=== PATIENT | male | born 1970 | race African-American/Black ===

== ENCOUNTER 2024-12-24 02:10 | Inpatient (IN) | payer MEDICAID ==
[~2024-12-24] VITALS: Ht 172.7 cm; Wt 88.0 kg
[2024-12-24 02:40] LABS: BASOPHILS % 1.1 % (0.0-2.0); DIFFERENTIAL COMMENT 0; EOSINOPHILS % 2.6 % (0.0-5.0); HEMATOCRIT. 47.8 % (42.0-52.0); LYMPHOCYTES % 29.1 % (20.0-50.0); MEAN CORPUSCULAR HEMOGLOBIN 33.6 pg (28.0-32.0); MEAN CORPUSCULAR HGB CONC 33.4 g/dL (31.0-37.0); MEAN CORPUSCULAR VOLUME 100.7 fL (80.0-94.0); MEAN PLATELET VOLUME 8.2 fl (7.4-10.4); MONOCYTES % 7.8 % (2.0-8.0); NEUTROPHILS % 59.4 % (40.0-76.0); PLATELET 276 x1000/uL (130-400); RED BLOOD CELL COUNT 4.75 mill/uL (4.7-6.1); RED CELL DISTRIBUTION WIDTH 14.2 % (11.6-14.6); WHITE BLOOD COUNT 8.4 x1000/uL (4.5-11.0)
[2024-12-24 02:44] LABS: CHLORIDE 101 mEq/L (98-107); POTASSIUM 3.4 mEq/L (3.5-5.1); SODIUM 143 mEq/L (136-145)
[2024-12-24 02:45] LABS: CARBON DIOXIDE 29 mEq/L (21-32)
[2024-12-24 02:50] LABS: CREATININE 1.6 mg/dL (0.6-1.3); GLUCOSE 103 mg/dL (70-105); UREA NITROGEN BLOOD 21 mg/dL (9-23)
[2024-12-24 02:51] LABS: AMMONIA < 17 uMol/L (<32); ETHANOL BLOOD 84 mg/dL (<10); TROPONIN I HIGH SENSITIVITY 9 ng/L (3.0-53)
[2024-12-24 02:52] LABS: ACETAMINOPHEN < 2 ug/mL (10-30)
[2024-12-24 03:03] LABS: CREATINE KINASE 2717 IU/L (46-171)
[2024-12-24] MEDS: SODIUM CHLORIDE 0.9% 1,000 ML IV ONE ×2 (04:46→04:59)
[2024-12-24 06:34] VITALS: BP 142/74; PULSE 85; RESP 18; TEMP 36.7
[2024-12-24 08:00] VITALS: BP 141/90; PULSE 63; RESP 20; TEMP 36.5; O2SAT 99
[2024-12-24] MEDS ORDERED: LORAZEPAM 2MG/ML INJ IV PRN (08:45)
[2024-12-24] MEDS ORDERED: MELATONIN 3MG TABLET PO PRN (09:30)
[2024-12-24] MEDS ORDERED: DOCUSATE SODIUM 100MG CAPSULE PO PRN (09:30)
[2024-12-24] MEDS ORDERED: MAGNESIUM/ALUMINUM HYDROXIDE/SIMETHICONE 30ML UDC PO PRN (09:30)
[2024-12-24] MEDS ORDERED: IPRATROPIUM/ALBUTEROL 0.5-3(2.5)MG/3ML NEB HHN PRN (09:30)
[2024-12-24] MEDS ORDERED: ONDANSETRON HCL 4MG/2ML INJ IV PRN (09:30)
[2024-12-24] MEDS ORDERED: GUAIFENESIN 200MG/10ML SUGAR FREE UDC PO PRN (09:30)
[2024-12-24] MEDS ORDERED: ACETAMINOPHEN 325MG TABLET PO PRN (09:30)
[2024-12-24] MEDS: POTASSIUM CHLORIDE 20MEQ/PACKET PO NR (10:15)
[2024-12-24] MEDS: THIAMINE HCL 100MG TABLET PO SCH (10:21)
[2024-12-24] MEDS: SODIUM CHLORIDE 0.45% 1,000 ML IV SCH (10:21)
[2024-12-24] MEDS: ENOXAPARIN 40MG/0.4ML SYR SUBCUT SCH (10:46)
[2024-12-24 12:00] VITALS: BP 147/91; PULSE 74; RESP 20; TEMP 36.7
[2024-12-24 16:00] VITALS: BP 156/86; PULSE 64; RESP 20; TEMP 36.5; O2SAT 100
[2024-12-24 17:14] LABS: *AMPHETAMINES SCREEN URINE PRESUMPTIVE POSITIVE (NEGATIVE); *BENZODIAZEPINES SCREEN URINE NEGATIVE (NEGATIVE)
[2024-12-24 17:15] LABS: *BARBITURATES SCREEN URINE NEGATIVE (NEGATIVE); *COCAINE SCREEN URINE NEGATIVE (NEGATIVE); CANNABINOID URINE SCREEN NEGATIVE (NEGATIVE); ECSTASY MDMA SCREEN URINE NEGATIVE (NEGATIVE); METHADONE URINE SCREEN NEGATIVE (NEGATIVE); OPIATES URINE SCREEN NEGATIVE (NEGATIVE); PHENCYCLIDINE URINE SCREEN PRESUMTIVE POSITIVE (NEGATIVE)
[2024-12-24 17:24] LABS: CLARITY URINE CLEAR (CLEAR); COLOR URINE YELLOW (YELLOW); GLUCOSE URINE NEGATIVE (NEGATIVE); KETONES URINE NEGATIVE (NEGATIVE); LEUKOCYTE ESTERASE URINE NEGATIVE (NEGATIVE); NITRITE URINE NEGATIVE (NEGATIVE); OCCULT BLOOD URINE NEGATIVE (NEGATIVE); PROTEIN URINE NEGATIVE (NEGATIVE); SPECIFIC GRAVITY URINE 1.022 (1.005-1.030)
[2024-12-24] MEDS: LACTATED RINGERS 1,000 ML IV SCH (17:33)
[2024-12-24 20:00] VITALS: BP 160/94; PULSE 63; RESP 16; TEMP 36.3; O2SAT 97
[2024-12-25] VITALS: BP 138/76; PULSE 60; RESP 16; TEMP 36.3; O2SAT 97
[2024-12-25 04:00] VITALS: BP 136/83; PULSE 79; RESP 16; TEMP 36.2; O2SAT 95
[2024-12-25 06:10] LABS: BASOPHILS % 0.4 % (0.0-2.0); DIFFERENTIAL COMMENT 0; EOSINOPHILS % 4.4 % (0.0-5.0); HEMATOCRIT. 44.4 % (42.0-52.0); HEMOGLOBIN. 14.7 g/dL (14.0-18.0); LYMPHOCYTES % 31.9 % (20.0-50.0); MEAN CORPUSCULAR HEMOGLOBIN 33.5 pg (28.0-32.0); MEAN CORPUSCULAR HGB CONC 33.1 g/dL (31.0-37.0); MEAN PLATELET VOLUME 9.1 fl (7.4-10.4); MONOCYTES % 8.2 % (2.0-8.0); NEUTROPHILS % 55.1 % (40.0-76.0); PLATELET 246 x1000/uL (130-400); WHITE BLOOD COUNT 7.1 x1000/uL (4.5-11.0)
[2024-12-25 06:32] LABS: CHLORIDE 106 mEq/L (98-107); POTASSIUM 4.1 mEq/L (3.5-5.1); SODIUM 140 mEq/L (136-145)
[2024-12-25 06:33] LABS: CARBON DIOXIDE 25 mEq/L (21-32)
[2024-12-25 06:38] LABS: CREATININE 0.8 mg/dL (0.6-1.3); GLUCOSE 112 mg/dL (70-105); UREA NITROGEN BLOOD 12 mg/dL (9-23)
[2024-12-25 06:39] LABS: CREATINE KINASE 672 IU/L (46-171)
[2024-12-25 06:40] LABS: THYROID STIMULATING HORMONE 0.56 uIU/mL (0.55-4.78)
[2024-12-25] MEDS: PANTOPRAZOLE 40MG DR TABLET PO SCH (06:50)
[2024-12-25 12:00] VITALS: PULSE 85; RESP 17; TEMP 36.7; O2SAT 97
[2024-12-25] MEDS ORDERED: LORAZEPAM 2MG/ML UD SYRINGE IV PRN (15:30)
[2024-12-25] MEDS: HYDRALAZINE 20MG/ML VIAL IV PRN (15:38)
[2024-12-25 16:00] VITALS: BP 146/76; RESP 20; TEMP 36.9; O2SAT 94
[2024-12-25 20:00] VITALS: BP 139/77; PULSE 91; RESP 18; TEMP 37; O2SAT 97
[2024-12-26] VITALS: BP 136/82; PULSE 70; RESP 18; TEMP 36.5; O2SAT 97
[2024-12-26 04:00] VITALS: BP 143/100; PULSE 89; RESP 16; TEMP 36.2; O2SAT 99
[2024-12-26 08:00] VITALS: BP 123/78; PULSE 88; RESP 19; TEMP 36.4; O2SAT 97
[2024-12-26 10:18] VITALS: BP 123/78; PULSE 88; TEMP 97; O2SAT 99
[2024-12-26 11:00] VITALS: BP 125/78; PULSE 80; RESP 18; TEMP 36.1; O2SAT 99
== END 2024-12-26 11:45 | disposition home health service (06) | DRG 425 ==
LOC: ER 02:10 → 5WST 04:52 → EDBEDREQ 05:04 → EDBEDREQTM 05:04
PROVIDERS: ADMIT Internal Medicine; ATTEND Internal Medicine
DX: E87.6 Hypokalemia (principal); N17.9 Acute kidney failure, unspecified; M79.605 Pain in left leg; M79.604 Pain in right leg; R74.8 Abnormal levels of other serum enzymes; G40.909 Epilepsy, unspecified, not intractable, without status epilepticus; F10.929 Alcohol use, unspecified with intoxication, unspecified; Y90.9 Presence of alcohol in blood, level not specified; Z79.899 Other long term (current) drug therapy; Z91.148 Patient's other noncompliance with medication regimen for other reason
CPT/HCPCS: 36415; 72170; 80048; 80305; 80307; 80320; 80329; 81003; 82140; 82550; 84439; 84443; 84484; 85025; 93005; 97166; 99285; A4606; J0360; J1650; J7120; G0480